=== PATIENT | female | born 1930 | race American Indian/Alaskan Native ===

== ENCOUNTER 2018-03-23 12:06 | Inpatient (IN) | payer MEDICARE, BC ==
[~2018-03-23] VITALS: Ht 152.4 cm; Wt 49.9 kg
[~2018-03-23 12:06] MED LIST: BAYER CHEWABLE81 MG PO; CALAN SR240 MG PO; CALCIUM 600 +1 EAC3 PO; DEMEROL50 MG PO; GLUCOSAMINE & C1 CAP PO; HYZAAR 100-12.51 TAB PO; MULTIPLE VITAMI1 TA1 PO
--- NOTE | 2018-03-23 17:25 | NUR ---
REC'D TO ROOM 2211 AWAKE AND ALERT. RESP EVEN AND UNLABORED WITH NO DISTRESS NOTED. CAN EXPRESS NEEDS AND WANTS AND WANTS. NO C/O NOTED OR VOICED. DOES HAS NOTED BRUISING FROM PRIOR IV STICKS. CURRENTLY NO IV ACCESS WITH AFTER BEING STUCK SEVERAL TIMES. GRANDDAUGHTER AT BEDSIDE. C/L IN REACH AT BEDSIDE.
[2018-03-23 18:20] LABS: INR 1.02 (0.85-1.17)
[2018-03-23 18:29] LABS: APTT 28.3 SECONDS (22.8-39.4)
[2018-03-23 18:30] VITALS: BP 157/84; BMI 21.5
--- NOTE | 2018-03-23 19:45 | NUR ---
PT SITTING UP IN BED, NO SIGNS OF DISTRESS. ALERT AND ORIENTED. GRAND DAUGHTER AT BEDSIDE. PT STATES NO PAIN OR COMPLAINTS, NO NEEDS AT THIS TIME. NO IV ACCESS AT THIS TIME. LAB AND RN ATTEMPTED LAB DRAWS AND IV WITHOUT SUCCESS. FARAZ MCLEAN NOTIFIED OF DELAY IN HEPARIN DRIP D/T NO IV ACCESS. ORDERS FOR MIDLINE PLACEMENT PER VASCULAR ACCESS AND TO START HEPARIN PROTOCOL FOR PE/DVT ONCE GETTING ACCESS.
--- NOTE | 2018-03-23 20:00 | NUR ---
SCDS ON TO BILAT LEGS
[2018-03-23 20:05] LABS: BASOPHILS 0.4 % (0-2); EOSINOPHILS 0.4 % (0-7); HEMATOCRIT 31.8 % (36.0-48.0); HEMOGLOBIN 10.3 g/dL (12-16); IMMATURE GRANULOCYTES 0.1 % (0-5); LYMPHOCYTES 10.3 % (15-50); MCH 25.3 pg (26.0-34.0); MCHC 32.4 g/dL (31.0-37.0); MCV 78.1 fL (80.0-100.0); MEAN PLATELET VOLUME 8.6 fL (7.4-10.4); MONOCYTES 8.7 % (2-11); NEUTROPHILS 80.1 % (40-80); PLATELET COUNT 412 10x3/uL (130-400); RBC 4.07 10x6/uL (4.00-5.40); RDW 17.1 % (11.5-14.5); WBC 9.4 10x3/uL (4.8-10.8)
[2018-03-23 20:22] LABS: ALBUMIN 3.1 g/dL (3.4-5.0); ALKALINE PHOSPHATASE 64 U/L (46-116); ALT (SGPT) 15 U/L (10-68); BILIRUBIN - TOTAL 0.33 mg/dL (0.2-1.3); CALC OSMOLALITY 262 mosm/kg (275-300); CALCIUM 9.1 mg/dL (8.5-10.1); CARBON DIOXIDE 27.5 mmol/L (21.0-32.0); CHLORIDE - SERUM 94 mmol/L (98-107); CREATININE - SERUM 0.7 mg/dL (0.6-1.3); GLUCOSE 107 mg/dL (74-106); POTASSIUM - SERUM 3.9 mmol/L (3.5-5.1); PROTEIN - SERUM 7.9 g/dL (6.4-8.2); SODIUM 131 mmol/L (136-145); UREA NITROGEN 12 mg/dL (7-18); eGFR NON AFRICAN AMERICAN 84 mL/min (90-120)
--- NOTE | 2018-03-23 20:30 | NUR ---
22G IV SITED TO RIGHT WRIST BY TUBULAR RIVETER. FLUSHES EASILY. PT STATES NO PAIN
[2018-03-23 20:53] VITALS: BP 198/70
--- NOTE | 2018-03-23 21:30 | NUR ---
INITIATED HEPARIN DRIP PER PE/DVT PROTOCOL W/ 5000 UNIT BOLUS AND BEGAN INFUSION AT 1300 UNITS/HR. SECOND NURSE WITNESSED AND VERIFIED
[2018-03-24 01:11] VITALS: BP 180/69
[2018-03-24 04:51] VITALS: BP 180/74
[2018-03-24 05:34] LABS: BASOPHILS 0.7 % (0-2); HEMATOCRIT 30.5 % (36.0-48.0); HEMOGLOBIN 9.9 g/dL (12-16); IMMATURE GRANULOCYTES 0.2 % (0-5); LYMPHOCYTES 17.2 % (15-50); MCH 25.4 pg (26.0-34.0); MCHC 32.5 g/dL (31.0-37.0); MCV 78.2 fL (80.0-100.0); MEAN PLATELET VOLUME 8.9 fL (7.4-10.4); MONOCYTES 8.2 % (2-11); NEUTROPHILS 71.7 % (40-80); PLATELET COUNT 449 10x3/uL (130-400); RDW 17.4 % (11.5-14.5)
[2018-03-24 05:50] LABS: ALKALINE PHOSPHATASE 56 U/L (46-116); ALT (SGPT) 15 U/L (10-68); BILIRUBIN - TOTAL 0.36 mg/dL (0.2-1.3); CALC OSMOLALITY 264 mosm/kg (275-300); CALCIUM 8.8 mg/dL (8.5-10.1); CARBON DIOXIDE 24.7 mmol/L (21.0-32.0); CHLORIDE - SERUM 95 mmol/L (98-107); CREATININE - SERUM 0.6 mg/dL (0.6-1.3); GLUCOSE 93 mg/dL (74-106); POTASSIUM - SERUM 3.4 mmol/L (3.5-5.1); PROTEIN - SERUM 7.4 g/dL (6.4-8.2); SODIUM 133 mmol/L (136-145); UREA NITROGEN 9 mg/dL (7-18); eGFR NON AFRICAN AMERICAN > 90 mL/min (90-120)
[2018-03-24 06:29] LABS: ALBUMIN 2.8 g/dL (3.4-5.0)
[2018-03-24 09:14] LABS: BASOPHILS 0.5 % (0-2); EOSINOPHILS 1.9 % (0-7); HEMATOCRIT 29.2 % (36.0-48.0); HEMOGLOBIN 9.6 g/dL (12-16); IMMATURE GRANULOCYTES 0.2 % (0-5); LYMPHOCYTES 11.6 % (15-50); MCH 25.5 pg (26.0-34.0); MCHC 32.9 g/dL (31.0-37.0); MCV 77.5 fL (80.0-100.0); MEAN PLATELET VOLUME 8.8 fL (7.4-10.4); MONOCYTES 8.7 % (2-11); NEUTROPHILS 77.1 % (40-80); PLATELET COUNT 436 10x3/uL (130-400); RBC 3.77 10x6/uL (4.00-5.40); RDW 17.2 % (11.5-14.5); WBC 8.1 10x3/uL (4.8-10.8)
[2018-03-24 09:23] LABS: CALC OSMOLALITY 265 mosm/kg (275-300); CALCIUM 8.7 mg/dL (8.5-10.1); CARBON DIOXIDE 27.3 mmol/L (21.0-32.0); CHLORIDE - SERUM 98 mmol/L (98-107); CREATININE - SERUM 0.6 mg/dL (0.6-1.3); GLUCOSE 112 mg/dL (74-106); SODIUM 133 mmol/L (136-145); UREA NITROGEN 9 mg/dL (7-18); eGFR NON AFRICAN AMERICAN > 90 mL/min (90-120)
[2018-03-24 09:32] LABS: POTASSIUM - SERUM 4.3 mmol/L (3.5-5.1)
[2018-03-24 09:35] VITALS: BP 164/71
[2018-03-24 10:19] LABS: INR 1.09 (0.85-1.17); PROTIME 13.6 SECONDS (11.6-15.0)
[2018-03-24 10:29] LABS: APTT 65.5 SECONDS (22.8-39.4)
[2018-03-24 12:17] VITALS: BMI 21.4
[2018-03-24 16:23] VITALS: Ht 152.4 cm; Wt 49.9 kg
--- NOTE | 2018-03-24 19:15 | NUR ---
RECEIVED CARE FROM DAY NURSE. LYING IN BED IN HIGH FOWLERS POSITION. REPORTS NO NEEDS AT THIS TIME. CALL LIGHT AT SIDE. IV SL TO RIGHT FA.
[2018-03-24 21:28] VITALS: BP 150/67
[2018-03-25 00:29] VITALS: BP 150/70
[2018-03-25 05:26] VITALS: BP 150/72
[2018-03-25 08:11] LABS: BASOPHILS 0.7 % (0-2); HEMATOCRIT 29.2 % (36.0-48.0); HEMOGLOBIN 9.4 g/dL (12-16); IMMATURE GRANULOCYTES 0.1 % (0-5); LYMPHOCYTES 15.2 % (15-50); MCH 25.2 pg (26.0-34.0); MCHC 32.2 g/dL (31.0-37.0); MCV 78.3 fL (80.0-100.0); MEAN PLATELET VOLUME 8.7 fL (7.4-10.4); MONOCYTES 10.3 % (2-11); NEUTROPHILS 70.7 % (40-80); PLATELET COUNT 371 10x3/uL (130-400); RBC 3.73 10x6/uL (4.00-5.40); RDW 17.4 % (11.5-14.5); WBC 7.7 10x3/uL (4.8-10.8)
[2018-03-25 08:49] LABS: ALBUMIN 2.4 g/dL (3.4-5.0); ALKALINE PHOSPHATASE 50 U/L (46-116); ALT (SGPT) 14 U/L (10-68); BILIRUBIN - TOTAL 0.28 mg/dL (0.2-1.3); CALC OSMOLALITY 265 mosm/kg (275-300); CALCIUM 8.3 mg/dL (8.5-10.1); CARBON DIOXIDE 24.8 mmol/L (21.0-32.0); CHLORIDE - SERUM 98 mmol/L (98-107); CREATININE - SERUM 0.6 mg/dL (0.6-1.3); GLUCOSE 88 mg/dL (74-106); POTASSIUM - SERUM 3.7 mmol/L (3.5-5.1); PROTEIN - SERUM 6.6 g/dL (6.4-8.2); SODIUM 134 mmol/L (136-145); UREA NITROGEN 11 mg/dL (7-18); eGFR NON AFRICAN AMERICAN > 90 mL/min (90-120)
[2018-03-25 09:09] VITALS: BP 180/67
[2018-03-25 13:15] VITALS: BP 108/70
--- NOTE | 2018-03-25 17:47 | NUR ---
CHARHOUSE WORKER NOTES - DRESSING TO GROIN CLEAN DRY AND INTACT. EXPECTING DISCHARGE SOON.
[2018-03-25 20:53] VITALS: BP 110/50
--- NOTE | 2018-03-25 23:02 | NUR ---
PT C/O DIARRHEA X7. REPORTS THAT SHE HAS DIVERTICULUM AND OCCASIONALLY SHE WILL HAVE DIARRHEA. AT HOME SHE TAKES IMODIUM AND GAS PILLS. ORDER RECEIVED FOR IMODIUM AND GAS PILLS.
[2018-03-26 00:50] VITALS: BP 172/51
--- NOTE | 2018-03-26 03:30 | NUR ---
PT REPORTS SHE ONLY HAD ONE MORE EPISODE OF DIARRHEA POST TX.
[2018-03-26 05:02] VITALS: BP 160/80
[2018-03-26 07:31] LABS: BASOPHILS 0.4 % (0-2); HEMATOCRIT 27.5 % (36.0-48.0); HEMOGLOBIN 8.8 g/dL (12-16); IMMATURE GRANULOCYTES 0.3 % (0-5); LYMPHOCYTES 17.6 % (15-50); MCH 25.1 pg (26.0-34.0); MCV 78.6 fL (80.0-100.0); MEAN PLATELET VOLUME 8.9 fL (7.4-10.4); MONOCYTES 11.7 % (2-11); PLATELET COUNT 379 10x3/uL (130-400); RDW 17.4 % (11.5-14.5); WBC 6.8 10x3/uL (4.8-10.8)
--- NOTE | 2018-03-26 07:52 | NUR ---
AAOX4 RESP EVEN AND NONLABORED, LITTLE HARD OF HEARING, NO SIGNS OF DISTRESS NOTED, CL IN REACH WILL CONTINUE TO MONITOR
[2018-03-26 08:00] VITALS: BP 176/66
[2018-03-26 08:02] LABS: ALBUMIN 2.5 g/dL (3.4-5.0); ALKALINE PHOSPHATASE 47 U/L (46-116); ALT (SGPT) 14 U/L (10-68); BILIRUBIN - TOTAL 0.24 mg/dL (0.2-1.3); CALC OSMOLALITY 266 mosm/kg (275-300); CALCIUM 8.1 mg/dL (8.5-10.1); CARBON DIOXIDE 25.2 mmol/L (21.0-32.0); CHLORIDE - SERUM 99 mmol/L (98-107); CREATININE - SERUM 0.5 mg/dL (0.6-1.3); GLUCOSE 87 mg/dL (74-106); POTASSIUM - SERUM 3.6 mmol/L (3.5-5.1); PROTEIN - SERUM 6.6 g/dL (6.4-8.2); SODIUM 135 mmol/L (136-145); eGFR NON AFRICAN AMERICAN > 90 mL/min (90-120)
[2018-03-26 08:04] LABS: UREA NITROGEN 7 mg/dL (7-18)
--- NOTE | 2018-03-26 16:08 | NUR ---
IV DC WITH CATH INTACT, DC INSTURCTIONS GIVEN NO QUESTIONS/CONCERNS EXPRESSED, LEFT VIA WHEELCHAIR VIA HOSPITAL STAFF VIA PRIVATE VEHCILE IN STABLE CONDITION
== END 2018-03-26 16:09 | disposition home or self-care (01) | DRG 254 ==
LOC: D.CT 12:06 → D.MS 16:59 → D.SDCHOLD 16:59 → D.MS 17:03
PROVIDERS: Emergency Medicine; Family Medicine Adult Medicine; Radiology Diagnostic Radiology; ADMIT Surgery
PROC: 03743ZZ Dilation of Left Subclavian Artery, Percutaneous Approach (ICD-10-PCS; 2018-03-24)
PROC: 03783ZZ Dilation of Left Brachial Artery, Percutaneous Approach (ICD-10-PCS; principal; 2018-03-24 12:00)
DX: I70.228 Atherosclerosis of native arteries of extremities with rest pain, other extremity (principal); I10 Essential (primary) hypertension; I99.8 Other disorder of circulatory system; K59.00 Constipation, unspecified

== ENCOUNTER → 2018-11-30 08:25 | Outpatient (CLI) | payer MEDICARE, BC ==
[2018-03-24 16:23] VITALS: BMI 21.5
--- NOTE | 2018-12-05 13:38 | EC ---
PATIENT:DANNI MATHEW DATE OF SERVICE: 11/30/18 SEX: F MEDICAL RECORD: [id number] DATE OF : [birth year] LOCATION:[facility] AGE OF PATIENT: 88 ADMISSION DATE: 11/30/18 REFERRING PHYSICIAN: INTERPRETING PHYSICIAN: INGRID PALAFOX MD ECHOCARDIOGRAM REPORT ECHO CHARGES 4 ECHO COMPLETE Date: 11/30/18 CLINICAL DIAGNOSIS: PALPITATIONS/SOB/SYNCOPE/HTN/ ABNORMAL EKG ECHOCARDIOGRAPHIC MEASUREMENTS (adult normal given) AC root (d.<3.7cm) 2.9 cm LV Septum d (<1.2 cm> 1.2 cm Valve Excursion 1.1 cm LV Septum (systole) 1.7 cm Left Atria (s.<4.0cm> 4.0 cm LVPW d(<1.2cm) 1.1 cm RV (d.<2.3cm) 1.9 cm LVPW (sytole) 1.9 cm LV diastole(<5.6CM) 4.5 cm MV E-F(>70mm/sec) cm LV systole 2.1 cm LVOT Diameter 1.6 cm MV exc.(>10mm) cm Est.ejection fraction (50-75%) % DOPPLER: LVIT cm/sec A 111 cm/sec E 70.0 cm/sec LA cm/sec RVSP 39.0 mmHg LVOT 121 cm/sec AOP1/2T m/s Asc. Ao 175 cm/sec RVOT 54.0 cm/sec RA cm/sec PA 84.0 cm/sec AV Gradient Peak 12.3 mmHg AV Mean 6.1 mmHg AV Area 1.5 cm MV Gradient Peak 4.1 mmHg MV Mean 1.5 mmHg MV Area cm COMMENTS: OP - HC Contract Associate Manager: 1 JORDAN ALEX Still Pump Operator: 1 Dr. Palafox TAPE# PACS Pericardial Effusion N DATE OF SERVICE: PROCEDURE: Echocardiogram. FINDINGS: 1. Left ventricular chamber size is within normal limits. Left ventricular systolic function is normal at 60%. 2. Left atrium upper limits of normal at 4.0 cm. Right atrium and right ventricular chamber sizes are within normal limits. 3. Valvular structures have normal structure and motion. ECHOCARDIOGRAM REPORT [id number] DANNI MATHEW 4. Doppler interrogation reveals mild mitral regurgitation, mild tricuspid regurgitation, no other valvular insufficiency or stenosis. Pulmonary systolic pressure is estimated 39 mmHg. 5. No evidence of pericardial effusion or left ventricular thrombus. TRANSINT:[id number] Voice Confirmation ID: [id number] DOCUMENT ID: [id number] INGRID PALAFOX MD at 1338 CC: [id number] DICTATION DATE: 12/04/18 1017 DIE CASTING MACHINE MAINTAINER: 12/04/18 1127 DEP CLI 11/30/18 [id number] [place] [address]
== END | disposition home or self-care (01) ==
LOC: D.HCCECHO 08:25 → D.HCCARDIO 09:00
PROVIDERS: ATTEND Internal Medicine Cardiovascular Disease
DX: R00.2 Palpitations (principal)